=== PATIENT | male | born 1955 | race Caucasian/White ===

== ENCOUNTER 2020-11-23 10:08 | Inpatient (IN) ==
[2020-11-23 10:18] VITALS: BMI 29.8
--- NOTE | 2020-11-23 10:51 | DR.GENAD ---
HPI Time Seen Time Seen by Provider: 11/23/20 10:49 PCP Primary Care Physician: RONEL KEENAN HPI Comment HPI Comment: PATIENT IS 65YR OLD MALE IN ER WITH INCREASING PAIN AND SWELLING TO LEFT UPPER EXTREMITY TIMES 2 WEEKS. PATIENT IS HAVING 10/10 PAIN RADIATING TO LEFT SHOULDER. DENIES TRAUMA OR SIMILAR PREVIOUS PAIN. PATIENT DENIES FEVER. HAVE HISTORY OF DVT. Complaint/Symptoms Chief Complaint Doctors Comments: PAIN AND SWELLING LEFT UPPER EXTREMITY TIMES 2 WEEKS. Chief Complaint:: PATIENT CAME TO ER REPORTS LEFT UPPER ARM PAIN, TENDERNESS AND SWELLING. PATIENT HAS PREVIOUS BLOOD CLOT. COVID-19 Coronavirus risk:travel/contact w/high risk person: No Has patient experienced Coronavirus symptoms: No Nurses notes reviewed Nurses Notes Review: Yes Source History Provided: Patient Mode of Arrival Mode of Arrival: Ambulatory Timing Onset of Chief Complaint: 11/09/20 Came on: Suddenly Duration Duration: Constant Duration: Weeks Severity Severity: Moderate Modifying Factors Worsens:: MOVEMENT. Improves:: REST. Other History Other History: HISTORY DVT. PMH PMH Past Medical History: Yes Past Medical History: Anxiety, Dyslipidemia, Hypertension and Hypothyroidism Past Surgical History: Yes Surgical History: Appendectomy Family History History of Family Medical Conditions: Yes Family Medical History: [place] Family Medical History Comment: HX BLOOD CLOTS Social History Alcohol Use: None Do you use any recreational Drugs:: No Lives With: Spouse Lives Where: Home Travel Risk Coronavirus risk:travel/contact w/high risk person: No Has patient experienced Coronavirus symptoms: No Infectious screening In the last 2 months have you had wt loss of >10#?: NO Have you had fever, night sweats or hemotysis?: No Have you traveled outside the country in the last 6 months?: No Isolation: Standard ROS Review of Systems Constitutional: No Symptoms Reported and See HPI; negative Fever, Weakness and Fatigue Eyes: No Symptoms Reported and See HPI ENTM: No Symptoms Reported and See HPI; negative Nose Discharge and Nose Congestion Respiratoy: See HPI and Short of Breath; negative Moist Cough and Wheezing Cardiovascular: No Symptoms Reported and See HPI; negative Chest Pain Gastrointestinal/Abdominal: No Symptoms Reported and See HPI; negative Abdominal Pain, Diarrhea and Vomiting Genitourinary: No Symptoms Reported and See HPI; negative Dysuria, Frequency and Hematuria Neurological: No Symptoms Reported and See HPI; negative Headache, Weakness and Dizziness Musculoskeletal: See HPI and Elbow (LEFT ARM AND FOREARM PAIN.); negative Back Pain Integumentary: No Symptoms Reported and See HPI; negative Change in Color, Rash and Juandice Hematologic/Lymphatic: No Symptoms Reported and See HPI; negative Easy Bruising and Swollen Glands Endocrine: No Symptoms Reported and See HPI; negative Increased Thirst and Increased Urine Psychiatric: No Symptoms Reported and See HPI All Other Systems: Reviewed and Negative PE Vital Signs Vitals: Temperature 97.9 F Pulse Rate 72 Respiratory Rate 18 Blood Pressure 169/98 O2 Sat by Pulse Oximetry 96 General Limitations: No Limitations General Appearance: Alert and In No Apparent Distress Head Head Exam: Normal Inspection and Atraumatic Eyes Eye exam: Normal Appearance and PERRL; negative Scleral Icterus and Conjunctival Injection ENT ENT Exam: Normal Exam, Normal Oropharynx, Normal External Ear Exam and TM's Normal Bilaterally External Ear Exam: Normal External Inspection TM/Canal Exam: Bilateral: Normal Nose Exam: Other (NOSE TENDER.) Mouth Exam: Normal Inspection and Other (UPPER LIPS SWOLLEN AND TENDER. GUM UPPER JAW TENDER.) Throat Exam: Normal Inspection; negative Tonsillar Erythema, Tonsillomegaly and Tonsillar Exudate Neck Neck Exam: Normal Inspection and Trachea Midline; negative Tenderness and Lymphadenopathy Chest Chest Inspection: Normal Inspection and Symmetric Chest Wall Rise; negative Tenderness Respiratory Respiratory Exam: Normal Lung Sounds Bilat; negative Accessory Muscle Use, Chest Wall Tenderness and Respiratory Distress Respiratory Exam: Bilateral: Clear to Auscultation Cardiovascular Cardiovascular Exam: Regular Rate, Normal Rhythm and Normal Heart Sounds; negative Systolic Murmur and Diastolic Murmur Abdominal Exam Abdominal Exam: Normal Inspection, Normal Bowel Sounds and Soft; negative Tenderness Extremities Extremities Exam: Tenderness (LEFT KNEE TENDER. JORDON.) Back Back Exam: Paraspinal Tenderness; negative (R) CVA Tenderness and (L) CVA Tenderness Neurologic Neurological Exam: Alert, Oriented X3 and CN II-XII Intact; negative Motor Sensory Deficit Psychiatric Psychiatric Exam: Normal Affect and Normal Mood Skin Skin Exam: Warm, Dry, Intact and Normal Color MDM Differential Diagnosis Differential Diagnosis: CONTUSION, FRACTURE FACE. CONTUSION, FRACTURE AND SPRAIN LEFT KNEE. COURSE Treatment Treatment: SEE ORDERS. TORADOL, 60MG IM AND NORFLEX 60MG IM IN ER. Consultation Consultation Comments: DISCUSSED PATIENT WITH DR. ARAMBULA. HE WILL ADMIT PATIENT. Education/Counseling Education/Counseling: Patient Educated On: Diagnosis and Needs for Follow Up ROR Labs Reviewed Laboratory Results Reviewed?: Yes Result Diagrams: 11/24/20 03:05 11/24/20 03:05 Laboratory: WBC 6.8 X10^3/uL (3.6-10.0) 11/23/20 11:00 RBC 4.68 X10^6/uL (4.7-6.0) L 11/23/20 11:00 Hgb 14.6 g/dL (13.5-18.0) 11/23/20 11:00 Hct 42.9 % (42.0-54.0) 11/23/20 11:00 MCV 91.7 fL (80.0-100.0) 11/23/20 11:00 MCH 31.2 pg (27.0-34.0) 11/23/20 11:00 MCHC 34.1 g/dL (33.0-35.0) 11/23/20 11:00 RDW 13.1 % (11.6-16.5) 11/23/20 11:00 Plt Count 249 X10^3/uL (150.0-450.0) 11/23/20 11:00 MPV 7.2 fL (7.4-11.0) L 11/23/20 11:00 Neut % (Auto) 67.8 % (42.0-75.0) 11/23/20 11:00 Lymph % (Auto) 21.3 % (21.0-51.0) 11/23/20 11:00 [place] % (Auto) 7.8 % (0.0-13.0) 11/23/20 11:00 Eos % (Auto) 2.4 % (0.9-2.9) 11/23/20 11:00 Baso % (Auto) 0.7 % (0.2-1.0) 11/23/20 11:00 Neut # (Auto) 4.6 x10^3/uL (2.2-4.8) 11/23/20 11:00 Lymph # (Auto) 1.4 X10^3/uL (1.3-2.9) 11/23/20 11:00 [place] # (Auto) 0.5 x10^3/uL (0.3-0.8) 11/23/20 11:00 Eos # (Auto) 0.2 x10^3/uL (0.0-0.2) 11/23/20 11:00 Baso # (Auto) 0.0 X10^3/uL (0.0-0.1) 11/23/20 11:00 Absolute Nucleated RBC 0.1 /100WBC 11/23/20 11:00 PT 13.6 SECONDS (11.8-14.3) 11/23/20 11:00 INR Target Range - 11/23/20 11:00 INR 1.07 (0.8-1.3) 11/23/20 11:00 APTT 31.2 SECONDS (22.9-36.5) 11/23/20 11:00 PTT Comment - 11/23/20 11:00 D-Dimer 1.73 ug/ml (0.0-0.57) H* 11/23/20 11:00 Sodium 141 mmol/L (136-145) 11/23/20 11:00 Corrected Sodium 142 mmol/L (136-145) 11/23/20 11:00 Potassium 3.8 mmol/L (3.5-5.1) 11/23/20 11:00 Chloride 105 mmol/L (98-107) 11/23/20 11:00 Carbon Dioxide 27.6 mmol/L (21-32) 11/23/20 11:00 BUN 24 mg/dL (7-18) H 11/23/20 11:00 Creatinine 1.46 mg/dL (0.70-1.30) H 11/23/20 11:00 Est GFR (MDRD) Af Amer > 60 (>60) 11/23/20 11:00 Est GFR (MDRD) Non-Af 51 (>60) L 11/23/20 11:00 Glucose 132 mg/dL (65-99) H 11/23/20 11:00 Calcium 9.0 mg/dL (8.5-10.1) 11/23/20 11:00 Corrected Calcium TNP 11/23/20 11:00 Total Bilirubin 0.60 mg/dL (0.2-1.0) 11/23/20 11:00 AST 16 Units/L (15-37) 11/23/20 11:00 ALT 25 Units/L (12-78) 11/23/20 11:00 Alkaline Phosphatase 81 Units/L (46-116) 11/23/20 11:00 Creatine Kinase 64 Units/L (39-308) 11/23/20 11:00 CK-MB (CK-2) < 1.0 ng/mL (0-4.0) 11/23/20 11:00 CK/CKMB % Calc 1.6 % (<4) 11/23/20 11:00 Troponin I < 0.02 ng/mL (0-1.5) 11/23/20 11:00 Total Protein 7.4 g/dL (6.4-8.2) 11/23/20 11:00 Albumin 3.8 g/dL (3.4-5.0) 11/23/20 11:00 Globulin 3.6 g/dL (2.5-4.5) 11/23/20 11:00 Albumin/Globulin Ratio 1.1 Ratio (1.1-2.1) 11/23/20 11:00 SARS CoV-2 RNA Rapid MARLY Negative (NEGATIVE) 11/23/20 14:29 XRAY XRAY Interpreted by: Radiologist and Self EKG Rate: 76 [place]: Normal Rhythm: NSR Block: RBBB Hypertrophy: None ST: Normal Opioid Opioid Risk Tool Age (Klaus box if 16-45): No History of Preadolescent Sexual Abuse: No Total: 0 Total Score Risk Category: Low Risk Copyright: Jeff BROWN predicting aberrant behaviors Diagnosis Discharge Problem: Pulmonary embolism on right Hypertension Qualifiers: Hypertension type: essential hypertension Qualified Code(s): I10 - Essential (primary) hypertension Instructions Instructions: Shortness of Breath, Adult, [id number] Pulmonary Embolism Bleeding Precautions When on Anticoagulant Therapy, Adult Hypertension, [id number] Forms: Precautions for COVID19 Patient Portal Social Distancing
[2020-11-23 11:07] LABS: BASOPHILS % (AUTO) 0.7 % (0.2-1.0); EOSINOPHILS # (AUTO) 0.2 x10^3/uL (0.0-0.2); EOSINOPHILS % (AUTO) 2.4 % (0.9-2.9); HEMATOCRIT 42.9 % (42.0-54.0); HEMOGLOBIN 14.6 g/dL (13.5-18.0); LYMPHOCYTES # (AUTO) 1.4 X10^3/uL (1.3-2.9); LYMPHOCYTES % (AUTO) 21.3 % (21.0-51.0); MEAN CORPUSCULAR HEMOGLOBIN 31.2 pg (27.0-34.0); MEAN CORPUSCULAR HGB CONC 34.1 g/dL (33.0-35.0); MEAN CORPUSCULAR VOLUME 91.7 fL (80.0-100.0); MEAN PLATELET VOLUME 7.2 fL (7.4-11.0); MONOCYTES # (AUTO) 0.5 x10^3/uL (0.3-0.8); MONOCYTES % (AUTO) 7.8 % (0.0-13.0); NEUTROPHILS # (AUTO) 4.6 x10^3/uL (2.2-4.8); NEUTROPHILS % (AUTO) 67.8 % (42.0-75.0); PLATELET COUNT 249 X10^3/uL (150.0-450.0); RED BLOOD COUNT 4.68 X10^6/uL (4.7-6.0); RED CELL DISTRIBUTION WIDTH 13.1 % (11.6-16.5); WHITE BLOOD COUNT 6.8 X10^3/uL (3.6-10.0)
[2020-11-23 11:21] LABS: ALANINE AMINOTRANSFERASE 25 Units/L (12-78); ALBUMIN 3.8 g/dL (3.4-5.0); ALKALINE PHOSPHATASE 81 Units/L (46-116); ASPARTATE AMINO TRANSFERASE 16 Units/L (15-37); BLOOD UREA NITROGEN 24 mg/dL (7-18); CARBON DIOXIDE 27.6 mmol/L (21-32); CHLORIDE 105 mmol/L (98-107); COR NA(FOR HYPERGLY) 142 mmol/L (136-145); CREATININE 1.46 mg/dL (0.70-1.30); SODIUM 141 mmol/L (136-145); TOTAL PROTEIN 7.4 g/dL (6.4-8.2); eGFR NON BLACK RACES 51 (>60)
[2020-11-23 11:46] LABS: CKMB % 1.6 % (<4); CREATINE KINASE 64 Units/L (39-308); CREATINE KINASE MB < 1.0 ng/mL (0-4.0); TROPONIN I < 0.02 ng/mL (0-1.5)
--- NOTE | 2020-11-23 11:56 | VAS ---
HISTORYLeft upper extremity edema and painSTUDYUpper Extremity Venous Doppler UltrasoundCOMPARISONNoneTECHNIQUELeft upper extremity venous Doppler ultrasound was performed using grayscale and color Doppler imaging with compression and augmentation techniques.FINDINGSThere is normal color Doppler flow within the internal jugular, subclavian, axillary, brachial, radial and ulnar vein segments. The deep vessels augment and compress normally, where appropriate. There is no DVT identified.IMPRESSIONNo evidence of DVT.Electronically signed by: CHRISTI ROY (Nov 23, 2020 11:56:20)
[2020-11-23] MEDS ORDERED: CATAPRES TAB 0.1 MG PO ONE (12:30)
[2020-11-23] MEDS ORDERED: CATAPRES TAB 0.1 MG ONE (12:31)
[2020-11-23] MEDS ORDERED: NS 100 ML IV 100 ML IV ONE (12:32)
--- NOTE | 2020-11-23 13:52 | CT ---
HISTORYelevated d-dimerSTUDYCTA CHESTCOMPARISONNoneTECHNIQUEMultiple axial images of the chest were obtained from the thoracic inlet to the upper abdomen after the administration of IV contrast. 3D reconstructions utilizing axial MIPS imaging was performed and reviewed. Dose reduction techniques including Automated Exposure Control (AEC) and adjustment of mA and kV were utilized.FINDINGSSatisfactory opacification of pulmonary arteries. Small pulmonary emboli are seen within a few segmental branches in the right lower lobe. Lungs grossly clear. No pleural or pericardial effusion or pneumothorax. Limited views upper abdomen grossly unremarkable. Tiny nonspecific hypodensity in the liver. No acute osseous finding.IMPRESSIONPositive for small volume PE in right lower lobe.Tiny indeterminate hypodensity in the liver probably a cyst. Six-month follow-up dedicated liver imaging could be considered.Electronically signed by: Drew Olea (Nov 23, 2020 13:50:20)
[2020-11-23] MEDS ORDERED: HEPARIN SODIUM INJ 5000 UNITS ONE (14:52)
[2020-11-23] MEDS ORDERED: HEPARIN SODIUM IN D5W 25,000 UNITS/500 ML BAG IV ONE (14:52)
[2020-11-23 14:57] LABS: ABG BASE EXCESS 1.7 mmol/L (-2.0-2.0); ABG HCO3 25.8 mmol/L (22-26)
[2020-11-23] MEDS: HEPARIN SODIUM IN D5W 25,000 UNITS/500 ML BAG IV PRN (15:03)
[2020-11-23] MEDS ORDERED: HEPARIN SODIUM INJ 5000 UNITS IVP ONE (15:04)
--- NOTE | 2020-11-23 15:25 | RAD ---
HISTORYPATIENT CAME TO ER REPORTS LEFT UPPER ARM PAIN, TENDERNESS AND SWELLING. PATIENT HAS PREVIOUS BLOOD CLOT.STUDYCHEST, 1 VIEWCOMPARISONNoneTECHNIQUEPortable chest x-rayFINDINGSHeart size and mediastinal contours are normal. Lungs are clear as are the pleural spaces. No free air or pneumothorax. No acute bony abonormality.IMPRESSIONNo acute radiographic abnormalities of the chestElectronically signed by: CHRISTI ROY (Nov 23, 2020 15:25:26)
[2020-11-23] MEDS ORDERED: ZOFRAN INJ 4 MG VIAL IVP PRN (16:40)
[2020-11-23] MEDS ORDERED: MORPHINE SULFATE INJ 2 MG INJ IVP PRN (16:40)
[2020-11-23] MEDS ORDERED: NS 1000 ML 1,000 ML IV SCH (16:40)
[2020-11-23] MEDS: TYLENOL 325 MG TAB PO PRN (17:27)
--- NOTE | 2020-11-23 18:36 | VAS ---
EXAM: BILATERAL LOWER EXTREMITY VENOUS DOPPLER ULTRASOUNDHISTORY: Left foot pain after stepping on a nail. Right leg complaints.TECHNIQUE: The lower extremity veins were interrogated with a high-frequency linear transducer, employing grayscale imaging, duplex Doppler and color flow Doppler imaging.COMPARISON: None available.FINDINGS:RIGHT: Interrogation of the common femoral vein, superficial femoral vein, popliteal vein, and posterior tibial vein demonstrates no intraluminal filling defects, no lack of vein compressibility, or no absence of intraluminal color flow Doppler signal to suggest deep venous thrombosis. There is no evidence for luminal thrombosis of the saphenous veins to suggest superficial vein thrombosis. No popliteal lesion reminiscent of a Burden's cyst is seen. No gross arterial aneurysm is incidentally noted.LEFT: Interrogation of the common femoral vein, superficial femoral vein, popliteal vein, and posterior tibial vein demonstrates no intraluminal filling defects, no lack of vein compressibility, or no absence of intraluminal color flow Doppler signal to suggest deep venous thrombosis. There is no evidence for luminal thrombosis of the saphenous veins to suggest superficial vein thrombosis. No popliteal lesion reminiscent of a Burden's cyst is seen. No gross arterial aneurysm is incidentally noted.Note: DVT could be missed early in the disease when clot burden is minimal. For patients with moderate and high pretest probability of DVT and negative ultrasound, the [place] [employer] clinical guidelines recommend testing with a d-dimer assay or repeat ultrasound in 5-7 days. If symptoms worsen, the Society of radiologists in ultrasound recommend repeating ultrasound even earlier.IMPRESSION:1. No evidence for DVT seen bilaterally.2. No abnormal fluid collection or Burden's cyst seen bilaterally.Electronically signed by: Mary Chavez (Nov 23, 2020 18:34:34)
[2020-11-23] MEDS ORDERED: RESTORIL CAP 15 MG PO PRN (23:04)
[2020-11-24 02:27] LABS: BILIRUBIN,URINE NEGATIVE (NEGATIVE); BLOOD/HEMOGLOBIN,URINE 2+ (NEGATIVE); GLUCOSE, URINE NEGATIVE (NEGATIVE); KETONES,URINE NEGATIVE (NEGATIVE); LEUKOCYTE ESTERASE ,URINE NEGATIVE (NEGATIVE); NITRITES,URINE NEGATIVE (NEGATIVE); PROTEIN,URINE NEGATIVE (NEGATIVE); UROBILINOGEN,URINE NORMAL (NORMAL)
[2020-11-24 02:43] LABS: APPEARANCE,URINE CLEAR (CLEAR); BACTERIA,URINE NEGATIVE /HPF (NEGATIVE); COLOR,URINE YELLOW (YELLOW); RBC,URINE 0-2 /HPF (0-3); SQUAMOUS EPITHELIAL CELL,UR RARE /HPF (NEGATIVE)
[2020-11-24 03:33] LABS: BASOPHILS # (AUTO) 0.1 X10^3/uL (0.0-0.1); EOSINOPHILS # (AUTO) 0.2 x10^3/uL (0.0-0.2); EOSINOPHILS % (AUTO) 2.5 % (0.9-2.9); HEMATOCRIT 40.4 % (42.0-54.0); HEMOGLOBIN 13.8 g/dL (13.5-18.0); LYMPHOCYTES # (AUTO) 1.7 X10^3/uL (1.3-2.9); LYMPHOCYTES % (AUTO) 23.3 % (21.0-51.0); MEAN CORPUSCULAR HEMOGLOBIN 31.5 pg (27.0-34.0); MEAN CORPUSCULAR HGB CONC 34.2 g/dL (33.0-35.0); MEAN PLATELET VOLUME 7.6 fL (7.4-11.0); MONOCYTES # (AUTO) 0.6 x10^3/uL (0.3-0.8); MONOCYTES % (AUTO) 8.6 % (0.0-13.0); NEUTROPHILS # (AUTO) 4.7 x10^3/uL (2.2-4.8); NEUTROPHILS % (AUTO) 64.6 % (42.0-75.0); PLATELET COUNT 220 X10^3/uL (150.0-450.0); RED BLOOD COUNT 4.39 X10^6/uL (4.7-6.0); RED CELL DISTRIBUTION WIDTH 12.9 % (11.6-16.5); WHITE BLOOD COUNT 7.2 X10^3/uL (3.6-10.0)
[2020-11-24 03:51] LABS: ALANINE AMINOTRANSFERASE 22 Units/L (12-78); ALBUMIN 3.4 g/dL (3.4-5.0); ALKALINE PHOSPHATASE 73 Units/L (46-116); ASPARTATE AMINO TRANSFERASE 15 Units/L (15-37); BLOOD UREA NITROGEN 17 mg/dL (7-18); CALCIUM 8.5 mg/dL (8.5-10.1); CARBON DIOXIDE 27.5 mmol/L (21-32); CHLORIDE 106 mmol/L (98-107); CKMB % 1.8 % (<4); COR NA(FOR HYPERGLY) 140 mmol/L (136-145); CREATINE KINASE 55 Units/L (39-308); CREATINE KINASE MB < 1.0 ng/mL (0-4.0); CREATININE 1.22 mg/dL (0.70-1.30); MAGNESIUM 2.1 mg/dL (1.7-2.9); SODIUM 140 mmol/L (136-145); TOTAL PROTEIN 6.8 g/dL (6.4-8.2); TROPONIN I < 0.02 ng/mL (0-1.5); eGFR NON BLACK RACES > 60 (>60)
[2020-11-24] MEDS: TYLENOL 325 MG TAB PO PRN (04:22)
[2020-11-24] MEDS: HEPARIN SODIUM IN D5W 25,000 UNITS/500 ML BAG IV PRN (08:07)
[2020-11-24] MEDS ORDERED: ELIQUIS PO SCH (10:00)
[2020-11-24] MEDS ORDERED: KLONOPIN TAB 0.5 MG PO SCH (10:00)
--- NOTE | 2020-11-24 10:28 | PCM.PROG ---
Progress Note - Progress Note for Day of Date of Exam: 11/24/20 - Subjective Subjective: WAS ADMITTED ON 11/23/20 FOR TREATMENT OF A RIGHT PULMONARY EMBOLISM AND HYPERTENSION. HE INITIALLY REPORTED FOR COMPLAINTS OF LEFT UPPER ARM PAIN, TENDERNESS, AND SWELLING. HE DOES HAVE A PMH OF A BLOOD CLOT IN THE ARM. LUE VENOUS DOPPLER WAS OBTAINED, BUT WAS NEGATIVE FOR DVT IN THAT ARM. A CHEST CTA, HOWEVER, DID REVEALED A SMALL VOLUME PE IN THE RIGHT LOWER LOBE. TODAY, HE IS ALERT AND ORIENTED, LYING IN BED ON MORNING ROUNDS. HE DOES ADMIT TO SHORTNESS OF BREATH AT TIMES. ON EXAMINATION, HEART IS REGULAR IN RATE AND RHYTHM. BILATERAL LUNGS ARE NOTED WITH DIMINISHED LUNG SOUNDS THROUGHOUT. HE CONTINUES WITH TENDERNESS AND MILD EDEMA TO THE LUE. ABDOMEN IS ROUND, SOFT, AND NON-TENDER WITH NORMAL BOWEL SOUNDS NOTED IN ALL QUADRANTS. HIS VITALS THIS MORNING ARE: 98.0-84-22-98%-178/91. LABS WERE OBTAINED. ABNORMAL LAB VALUES INCLUDE THE FOLLOWING: RBC 4.39, HCT 40.4, PTT 79.6, GLUCOSE 111. CARDIAC ENZYMES ARE WITHIN NORMAL LIMITS. A URINALYSIS WAS OBTAINED AND IS UNREMARKABLE WITH THE EXCEPTION OF 2+ OCCULT BLOOD. AN EKG WAS OBTAINED THIS MORNING AND REVEALED: SINUS RHYTHM WITH HR 64. HE IS CURRENTLY RECEIVING NORMAL SALINE AT KVO, HEPARIN DRIP PER PROTOCOL, MORPHINE 2MG IV Q6H PRN, RESTORIL 15MG PO HS PRN, ZOFRAN 4MG IV Q6H PRN, AND TYLENOL 650MG PO Q4H PRN. TODAY, WE WILL START ELIQUIS 5MG PO BID AND KLONOPIN 0.5MG PO BID. WE WILL OBTAIN AN ECHO, HYPERCOAGULABLE PANEL, AND SET UP A NUCLEAR STRESS TEST AFTER DISCHARGE. OTHERWISE, WE WILL CONTINUE WITH CURRENT PLAN OF CARE. TIME SPENT ON CLINICAL ASSESSMENT, REVIEWING LABS AND IMAGING, DECISION MAKING, AND DOCUMENTATION GREATER THAN 75 MINUTES. - Past Medical Family Social History Past Med/Fam/Surg Hx: No changes since H&P Allergies: Allergies No Known Drug Allergies Allergy (Verified 11/23/20 12:33) - Review of Systems ROS: No change since H&P - Vital Signs and I&O's Vital Signs: Temperature 98.0 F Pulse Rate [Left Brachial] 84 Pulse Rate 75 Respiratory Rate 22 Blood Pressure [Right Arm] 178/91 Blood Pressure 153/93 O2 Sat by Pulse Oximetry 98 Intake and Output: Intake & Output 11/21/20 11/22/20 11/23/20 11/24/20 10:59 10:59 11:59 11:59 Intake Total 1721.0 / 1721.0 Output Total 350 / 350 Balance 1371.0 / 1371.0 - Physical Exam Oriented: Normal Eyes: Normal Ear: Normal Nose: Normal Throat: Normal Respiratory: Normal Cardiovascular: Normal : Normal Auscultation: Bowel Sounds: Normal Palpation: Normal Tenderness: Normal Skin: Normal Musculoskeletal: Normal Psychiatric: Normal Mood Description: Calm Affect: Normal Speech Pattern: Clear, Appropriate - Laboratory and Diagnostics Result Diagrams: 11/24/20 03:05 11/24/20 03:05 Labs: Laboratory WBC 7.2 X10^3/uL (3.6-10.0) 11/24/20 03:05 RBC 4.39 X10^6/uL (4.7-6.0) L 11/24/20 03:05 Hgb 13.8 g/dL (13.5-18.0) 11/24/20 03:05 Hct 40.4 % (42.0-54.0) L 11/24/20 03:05 MCV 92.0 fL (80.0-100.0) 11/24/20 03:05 MCH 31.5 pg (27.0-34.0) 11/24/20 03:05 MCHC 34.2 g/dL (33.0-35.0) 11/24/20 03:05 RDW 12.9 % (11.6-16.5) 11/24/20 03:05 Plt Count 220 X10^3/uL (150.0-450.0) 11/24/20 03:05 MPV 7.6 fL (7.4-11.0) 11/24/20 03:05 Neut % (Auto) 64.6 % (42.0-75.0) 11/24/20 03:05 Lymph % (Auto) 23.3 % (21.0-51.0) 11/24/20 03:05 [place] % (Auto) 8.6 % (0.0-13.0) 11/24/20 03:05 Eos % (Auto) 2.5 % (0.9-2.9) 11/24/20 03:05 Baso % (Auto) 1.0 % (0.2-1.0) 11/24/20 03:05 Neut # (Auto) 4.7 x10^3/uL (2.2-4.8) 11/24/20 03:05 Lymph # (Auto) 1.7 X10^3/uL (1.3-2.9) 11/24/20 03:05 [place] # (Auto) 0.6 x10^3/uL (0.3-0.8) 11/24/20 03:05 Eos # (Auto) 0.2 x10^3/uL (0.0-0.2) 11/24/20 03:05 Baso # (Auto) 0.1 X10^3/uL (0.0-0.1) 11/24/20 03:05 Absolute Nucleated RBC 0.1 /100WBC 11/24/20 03:05 PT 13.6 SECONDS (11.8-14.3) 11/23/20 11:00 INR Target Range - 11/23/20 11:00 INR 1.07 (0.8-1.3) 11/23/20 11:00 APTT 78.7 SECONDS (22.9-36.5) H 11/24/20 08:56 PTT Comment - 11/24/20 08:56 D-Dimer 1.74 ug/ml (0.0-0.57) H* 11/23/20 17:07 Sample Site [facility] 11/23/20 14:51 ABG pH 7.440 (7.35-7.45) 11/23/20 14:51 ABG pCO2 38.0 mmHg (35.0-45.0) 11/23/20 14:51 ABG pO2 91.0 mmHg (80.0-100.0) 11/23/20 14:51 ABG HCO3 25.8 mmol/L (22-26) 11/23/20 14:51 ABG O2 Saturation 97.0 % (90-100) 11/23/20 14:51 ABG Base Excess 1.7 mmol/L (-2.0-2.0) 11/23/20 14:51 Dean Test N/a 11/23/20 14:51 A-a Gradient 11.0 mmHg 11/23/20 14:51 FiO2 21.0 11/23/20 14:51 Blood Gas Comments Pt royer well elj 11/23/20 14:51 Sodium 140 mmol/L (136-145) 11/24/20 03:05 Corrected Sodium 140 mmol/L (136-145) 11/24/20 03:05 Potassium 3.8 mmol/L (3.5-5.1) 11/24/20 03:05 Chloride 106 mmol/L (98-107) 11/24/20 03:05 Carbon Dioxide 27.5 mmol/L (21-32) 11/24/20 03:05 BUN 17 mg/dL (7-18) 11/24/20 03:05 Creatinine 1.22 mg/dL (0.70-1.30) 11/24/20 03:05 Est GFR (MDRD) Af Amer > 60 (>60) 11/24/20 03:05 Est GFR (MDRD) Non-Af > 60 (>60) 11/24/20 03:05 Glucose 111 mg/dL (65-99) H 11/24/20 03:05 Calcium 8.5 mg/dL (8.5-10.1) 11/24/20 03:05 Corrected Calcium TNP 11/24/20 03:05 Magnesium 2.1 mg/dL (1.7-2.9) 11/24/20 03:05 Total Bilirubin 0.40 mg/dL (0.2-1.0) 11/24/20 03:05 AST 15 Units/L (15-37) 11/24/20 03:05 ALT 22 Units/L (12-78) 11/24/20 03:05 Alkaline Phosphatase 73 Units/L (46-116) 11/24/20 03:05 Creatine Kinase 55 Units/L (39-308) 11/24/20 03:05 CK-MB (CK-2) < 1.0 ng/mL (0-4.0) 11/24/20 03:05 CK/CKMB % Calc 1.8 % (<4) 11/24/20 03:05 Troponin I < 0.02 ng/mL (0-1.5) 11/24/20 03:05 Total Protein 6.8 g/dL (6.4-8.2) 11/24/20 03:05 Albumin 3.4 g/dL (3.4-5.0) 11/24/20 03:05 Globulin 3.4 g/dL (2.5-4.5) 11/24/20 03:05 Albumin/Globulin Ratio 1.0 Ratio (1.1-2.1) L 11/24/20 03:05 Specimen Type Clean catch urine 11/24/20 02:05 Urine Color Yellow (YELLOW) 11/24/20 02:05 Urine Appearance Clear (CLEAR) 11/24/20 02:05 Urine pH 6.0 (5.0 - 8.0) 11/24/20 02:05 Ur Specific [place] 1.020 (1.000-1.030) 11/24/20 02:05 Urine Protein Negative (NEGATIVE) 11/24/20 02:05 Urine Glucose (UA) Negative (NEGATIVE) 11/24/20 02:05 Urine Ketones Negative (NEGATIVE) 11/24/20 02:05 Urine Occult Blood 2+ (NEGATIVE) 11/24/20 02:05 Urine Nitrite Negative (NEGATIVE) 11/24/20 02:05 Urine Bilirubin Negative (NEGATIVE) 11/24/20 02:05 Urine Urobilinogen Normal (NORMAL) 11/24/20 02:05 Ur Leukocyte Esterase Negative (NEGATIVE) 11/24/20 02:05 Urine RBC 0-2 /HPF (0-3) 11/24/20 02:05 Urine WBC 0-2 /HPF (0-5) 11/24/20 02:05 Ur Squamous Epith Cells Rare /HPF (NEGATIVE) 11/24/20 02:05 Urine Bacteria Negative /HPF (NEGATIVE) 11/24/20 02:05 Ur Culture Indicated? No/not indicated 11/24/20 02:05 SARS CoV-2 RNA Rapid MARLY Negative (NEGATIVE) 11/23/20 14:29 - Plan (1) Hypertension Status: Acute Qualifiers: Hypertension type: essential hypertension Qualified Code(s): I10 - Essential (primary) hypertension (2) Pulmonary embolism on right Status: Acute
[2020-11-24 12:12] LABS: ERYTHROCYTE SEDIMENTATION RATE 56 MM/HOUR (0-15)
[2020-11-24 15:21] VITALS: BP 153/87
[2020-11-27 12:29] LABS: ANTI-NUCLEAR ANTIBODY TEST None Detected (None Detected)
[2020-11-28 07:05] LABS: PROTEIN C ACTIVITY 132 % (83-168)
[2020-12-01 07:20] LABS: PTT-D HEPARIN NEUT 41
[2020-12-01 07:21] LABS: REPTILASE TIME 16.7; THROMBIN TIME 89.5
[2020-12-02 12:44] LABS: PROTHROMBIN G20210A Negative
== END 2020-11-24 15:00 | disposition home or self-care (01) | DRG 176 ==
LOC: ER 10:11 → MED/SURG 14:32
PROVIDERS: ADMIT Internal Medicine; ATTEND Internal Medicine
DX: E78.2 Mixed hyperlipidemia; Z20.822 Contact with and (suspected) exposure to COVID-19; R60.0 Localized edema; M79.602 Pain in left arm; Z79.01 Long term (current) use of anticoagulants; R06.02 Shortness of breath; I10 Essential (primary) hypertension; I26.99 Other pulmonary embolism without acute cor pulmonale